=== PATIENT | female | born 1980 | race Caucasian/White ===

== ENCOUNTER 2021-01-07 08:53 | Emergency (ER) | payer OTHER, SELFPAY ==
[2021-01-07 08:59] VITALS: BP 147/99; PULSE 71; RESP 16; TEMP 36.1; O2SAT 99
[2021-01-07] MEDS: Ibuprofen 800 MG TAB (09:19)
--- NOTE | 2021-01-07 10:07 | DI.RAD_ITS ---
Exam(s) XR ANKLE RT COMPLETE EXAM: XR ANKLE RT COMPLETE CLINICAL HISTORY: trauma, lateral right ankle pain TECHNIQUE: COMPARISON: No exams were available for comparison FINDINGS: Three views were obtained. The ankle mortise is well maintained. There are nonspecific calcific and /or ossific radiodensities projected adjacent to the medial and posterior malleoli of the tibia. There is no evidence of acute fracture or dislocation. IMPRESSION: RADIATION DOSE DELIVERED: Total DLP
--- NOTE | 2021-01-07 11:18 | ED.GENADUL_ITS ---
Discharge Plan Disposition Patient Disposition: HOME Condition: Stable Discharge Details Clinical Impression: Ankle injury Primary Care Provider: Jus Joy ED Provider: Christine Barajas Home Meds and New Rx's Prescriptions: Continued lorazepam 1 mg tablet 0.5 mg PO DAILY PRNRF: 0 sertraline 50 mg tablet 25 mg PO DAILY RF: 0 Discharge Instructions Instructions: Ankle Sprain (ED) Additional Instructions: Please return immediately to the emergency department if you develop any new or worsening symptoms, if your condition does not improve as expected, or if you become otherwise concerned. It is extremely important that you call soon as possible to make an appointment to be seen in follow-up for this visit by your primary care doctor. Referrals: Jus Joy MD [Primary Care Provider] - Discharge Data Discharge Date/Time-TO BE ENTERED AT DEPARTURE: 01/07/21 11:28 Medical Decision Making Kerri Hart is a 40 y/o woman without reported h/o major medical problems who presented to the emergency department with ankle pain after inverting her ankle while carrying garbage this morning. On exam Pt is well and non-toxic appearing. There is TTP of the right ankle just inferior to the lateral mallelous, no other TTP of the ankle, foot, or right lower leg. Right foot is NVI. Concern for fracture vs sprain. Exam/hx at this time not c/w maisonneuve injury, DVT, non- mechanical etiology of injury, other significant injury of the extremities, head, spine, thorax, abdomen. Plan for xrays. xrays normal. Plan for ankle stabilizer, crutches, weight bearing as tolerated, outpt f/u. I had a lengthy discussion with Patient regarding return to emergency department precautions, home care, and importance of outpatient follow-up. Pt verbalizes understanding of the plan and is amenable. Patient discharged to home with clear plan for outpatient follow-up. All questions were answered. Disposition decision was made weighing the risks and benefits of hospitalization versus outpatient treatment, the risk for further decompensation, and the patient's wishes. Medical Records Medical records reviewed: Yes I reviewed the patient's medical records. Imaging Data Radiologic Study: Attestation: I personally reviewed and interpreted this imaging study as follows: Radiologist's impression: EXAM: XR ANKLE RT COMPLETE CLINICAL HISTORY: trauma, lateral right ankle pain TECHNIQUE: COMPARISON: No exams were available for comparison FINDINGS: Three views were obtained. The ankle mortise is well maintained. There are nonspecific calcific and/or ossific radiodensities projected adjacent to the medial and posterior malleoli of the tibia. There is no evidence of acute fracture or dislocation. HPI General Mode of arrival: ambulatory . Date/Time Provider Initiated Documentation: 01/07/21 09:25 . Limitations to Documentation: no limitations . Information obtained by: patient, RN notes reviewed and old records reviewed . HPI Narrative: Kerri Hart is a 40-year-old woman without reported history of major medical problems presenting to emergency department with ankle pain. Patient reports that this morning just prior to arrival she was helping unload garbage into a dumpster when she rolled her right ankle, inverting her foot. [place] a pop. Patient reports that she has had pain in the right lateral ankle with weightbearing since injury. Patient reports that she had no symptoms preceding injury. She denies any pain other than pain to the right lateral ankle. No fever, cough, shortness of breath, vomiting, diarrhea, numbness, weakness, rash. No skin wounds. Patient reports that she did not fall to the ground at time of injury. Related Data Home Medications Medication Instructions Recorded Confirmed lorazepam 1 mg tablet 0.5 mg PO DAILY PRN tab 08/27/20 01/07/21 sertraline 25 mg PO DAILY 01/07/21 01/07/21 Allergies Allergy/AdvReac Type Severity Reaction Status Date / Time latex AdvReac Itching Unverified 01/07/21 09:03 General Stated Complaint: Orthopedic TIGIST: 4 Review of Systems Narrative: Constitutional: denies fevers Eyes: denies eye pain ENT: denies ear pain, dental pain, sore throat Cardiovascular: denies chest pain Respiratory: denies SOB, cough GI: denies abdominal pain, vomiting, diarrhea : denies flank pain MSK: reports right ankle pain, denies back pain, neck pain, other arthralgias, myalgias Skin: denies rash, skin wound Neuro: denies headaches, numbness, weakness [facility] Medical History (Updated 01/07/21 @ 11:14 by Christine Barajas MD) History of herpes genitalis Palpitations (11/04/12) Surgical History section 2005,2008 Family History Mother Essential hypertension Depression Father Diabetes Bipolar disorder Depression Heart disease Hyperlipidemia Brother Depression Hyperlipidemia Asthma Grandfather Personal history of malignant neoplasm Skin and prostate Grandfather Essential hypertension Heart disease Hyperlipidemia Grandmother Essential hypertension Diabetes Grandmother No problems noted. Brother No problems noted. Social History Smoking/Tobacco Use Status: Never Smoking risk assessment performed?: Yes Alcohol Intake: current Alcohol Intake frequency: 3 or more drinks per day Alcohol type: wine Drug use: Socially Substance use type: marijuana Household members: children and other Details: 2 stepchildren Number of Children: 4 current occupation: [employer] Duration: 45-60 minutes/day Frequency: 1-2 times per week Do you feel safe at home: Yes Do you feel safe in your relationship?: Yes Exam Narrative Exam Narrative: Constitutional: well and [id number], pleasant, conversing normally HENT: head atraumatic/normocephalic/normal inspection, mucous membranes moist Eyes: conjunctiva normal, sclera normal, pupils 3mm b/l Neck: no stridor, normal ROM, trachea midline Resp: normal work of breathing, speaking in full sentences Cardio: normal rate, normal rhythm Skin: warm, dry, normal color, no rash Neuro: alert, not altered, grossly non-focal, normal tone Ext: focal edema of the right lateral ankle, no other skin changes of the right foot/ankle, TTP of the right ankle just inferior to the lateral mallelous, DP pulses intact, normal ROM right toes, painful ROM right ankle, normal ROM right knee, no posterior calf or proximal fibular TTP, no TTP of the heel, achilles, or foot Psych: normal mood, normal affect, normal behavior Course Vital Signs Vital signs: Vital Signs Temperature 36.1 C L 01/07/21 08:59 Pulse 71 01/07/21 08:59 Respiratory Rate 16 01/07/21 08:59 Blood Pressure 147/99 H 01/07/21 08:59 Pulse Oximetry 99 01/07/21 08:59 Temperature 36.1 C L 01/07/21 08:59 Temperature Source Skin 01/07/21 08:59 Pulse 71 01/07/21 08:59 Respiratory Rate 16 01/07/21 08:59 Respiratory Effort 01/07/21 09:06 Blood Pressure 147/99 H 01/07/21 08:59 Pulse Oximetry 99 01/07/21 08:59 Oxygen Delivery Method Room Air 01/07/21 08:59 Oxygen Flow Rate 0 01/07/21 08:59 Pain Level 2 01/07/21 09:08 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 01/07/21 08:59 PAWSS Have you Been Recently Intoxicated or Drunk Within the Last 30 days?: No Have you Ever Experienced Previous Episodes of Alcohol Withdrawal?: No Have you ever Experienced Withdrawal Seizures?: No Have you ever Experienced Delirium Tremens(DT)s?: No Have you ever undergone Alcohol Rehabilitation Treatment (i.e, inpt ot outpatient treatment programs)?: No Have you ever Experienced Blackouts?: No Have you ever Combined Alcohol with other Downers within the last 90 days?: No Have you ever Combined Alcohol with any other Substance of Abuse during the last 90 days?: No Positive Blood Alcohol level on Presentation? [PCS.BAL]: No Evidence of Increased Autonomic Activity (i.e. HR>120, tremor, sweating, agitation, nausea)?: No Result: 0
== END 2021-01-07 11:28 | disposition home or self-care (01) ==
PROVIDERS: Emergency Provider Student in an Organized Health Care Education/Training Program; PCP Family Medicine
DX: S99.811A Other specified injuries of right ankle, initial encounter (principal); X50.1XXA Overexertion from prolonged static or awkward postures, initial encounter
CPT/HCPCS: 29515; 99283; 73610

== ENCOUNTER 2021-12-09 20:58 | Outpatient (REF) | payer SELFPAY | END 2021-12-09 20:59 | disposition home or self-care (01) | LOC: LBN 20:58 | PROVIDERS: PCP Family Medicine; Visit Provider Nurse Practitioner Family | DX: N39.0 Urinary tract infection, site not specified (principal) | CPT/HCPCS: 87077; 87086; 87186 ==

== ENCOUNTER 2022-01-12 03:27 | Outpatient (CLI) | payer SELFPAY ==
[2022-01-12 10:51] LABS: Calculated LDL 162 mg/dL (<100); Cholesterol 234 mg/dL (<200); Glucose 73 mg/dL (74-106); HDL Cholesterol 53 mg/dL (40-60); TSH (W/Ref FT4) 1.97 uIU/mL (0.36-3.74); Triglyceride 95 mg/dL (<150)
[2022-01-12 11:02] LABS: C-Reactive Protein 0.51 mg/dL (0.0-0.3)
== END 2022-01-12 03:28 | disposition home or self-care (01) ==
PROVIDERS: PCP Family Medicine; Visit Provider Family Medicine
DX: E78.5 Hyperlipidemia, unspecified (principal); E03.9 Hypothyroidism, unspecified; R73.9 Hyperglycemia, unspecified; R41.89 Other symptoms and signs involving cognitive functions and awareness
CPT/HCPCS: 36415; 80061; 82947; 84443; 86140

== ENCOUNTER 2023-01-27 16:33 | Emergency (ER) | payer MEDICAID, SELFPAY ==
[2023-01-27] VITALS (9 sets, daily range): BP systolic 130–201; BP diastolic 81–121; PULSE 98–105; RESP 12–33; TEMP 36.8; O2SAT 99
--- NOTE | 2023-01-27 16:30 | RT.EKG_ITS ---
APPROVED REPORT Exam: Resting ECG Reason for Exam: high stress Patient Location: E HR:112 bpm ECG Measurements Heart Rate 112 AXIS ID 146 P 45 QRSd 86 QRS 29 QT 339 T -1 QTc 463 Conclusion Sinus tachycardia...rate> 99 Probable left atrial enlargement...P >50mS, <-0.10mV V1 Physician: no stemi, q3,T3 present. No significant ST elevation or depression. no prior for compariso n
--- NOTE | 2023-01-27 16:50 | ED.GENADUL_ITS ---
Discharge Plan Disposition Patient Disposition: Home Discharge Details Chief Complaint: Anxiety Clinical Impression: Left-sided chest pain, Muscle spasm, Anxiety Primary Care Provider: Jus Joy ED Provider: Zeus Raphael Home Meds and New Rx's Prescriptions: No Action multivitamin Tablet 1 tab PO DAILY bupropion HCl 150 mg tablet extended release 24 hr 150 mg PO QAM Qty: 30 2RF omeprazole 40 mg capsule,delayed release(DR/EC) 40 mg PO DAILY Qty: 90 3RF lorazepam 1 mg tablet 0.5 mg PO DAILY PRN (Reason: anxiety) Qty: 10 0RF famotidine [Zantac-360 (famotidine)] 10 mg tablet 10 mg PO DAILY Mirena 21 mcg/24 hours (8 yrs) 52 mg intrauterine device 1 device intrauterine ONCE Rx Instructions: as a single dose Discharge Instructions Instructions: Chest Pain (ED), Muscle Spasm (ED), Anxiety (ED) Additional Instructions: At this time your laboratory work-up has returned very reassuring. There is no evidence of heart attack, blood clot, or other significant abnormality. Your thyroid function is normal. Your electrolytes are normal. Your ultrasound shows evidence of a well-appearing heart, no pneumonia or pneumothorax for your lungs. At this time I am concerned that your symptoms are multifactorial. I suspect you have component of anxiety as well as potential viscerosomatic reflex from a gastric irritation. 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 Please continue to take your home medications as prescribed, take the cyclobenzaprine/muscle relaxant only as needed for breakthrough spasms. Continue to avoid spicy foods, tomato-based products, citrus products. If you notice any worsening of your symptoms, or any new symptoms such as vomiting, diarrhea, fever, chills, shortness of breath, chest pain, numbness, weakness, or fainting , please return immediately to the emergency department for reevaluation. Please follow up with your primary care provider as soon as possible for reassessment and reevaluation. As always, it was a pleasure participating in your medical care today. Referrals: Jus Joy MD [Primary Care Provider] - Medical Decision Making 42-year-old female with past medical history of mild anxiety, reflux, asthma, and a strong family history of cardiac disease at the age of 36, who presents today for evaluation of anxiety and chest discomfort. Patient states that 3 days ago she was started on Wellbutrin, she had been doing well with this. She has been having recurrence of her reflux over the last few weeks, and has been taking Prilosec for this. This morning at around 5 AM she saw her previous significant other, had a very challenging conversation with him, which led to notable amount of anxiety. In addition to this this is a 3-year anniversary 2 days ago of her father's from cardiac disease, in addition to this she had a [employer] sausage breakfast sandwich which immediately caused left-sided scapular pain and heartburn-like symptoms. The symptoms have continued throughout the day despite Prilosec and antacid use. With her continued anxiety components, and her other symptoms she was concerned and came to the ER for further assessment. She denies any vomiting or diarrhea. She denies any numbness or tingling. No personal previous history of cardiac disease. No other complaints at this time. She denies any exertional component. She denies any history of tobacco use. Exam demonstrates a anxious appearing female. Heart rate elevated, blood pressure elevated, she denies any pleuritic chest pain, history of blood clots, recent long travel or surgeries or procedures. Symptoms are concerning for reflux with an anxiety component however because of her strong family history of cardiac disease this is certainly on the differential as well. Will evaluate for unlikely ACS, will give GI cocktail, Carafate, small dose of Ativan, monitor closely and reassess. She has no hyperreflexia or leadpipe rigidity. No fever. Symptoms appear inconsistent with serotonin syndrome, or neuroleptic malignant syndrome. EKG EKG shows no ST elevation or depression. Q-wave in lead III, inverted T wave in lead III. No reciprocal elevations or depressions. No prior EKG for comparison. 8:43 PM Laboratory work-up has returned, no white count bandemia or left shift. Renal function stable. D-dimer normal. Troponin normal. Repeat 3-hour troponin normal. Thyroid function normal. GI cocktail did not change the patient's symptoms. Ativan and Valium notably improved the patient's anxiety, heart rate improved, blood pressure improved, and chest pain only minimally improved. Patient states that the chest pain is now very responsive to massage. Family member is massaging the area and she states that this resolves the pain during the massage. She still describes the pain as a muscular pain in the back by the scapula, and occasionally some mild pectoralis pain. Pain is mild though. Repeat EKG shows stability and no acute change. No evidence of STEMI. Bedside ultrasound was performed demonstrates good lung sliding, bedside cardiac echo shows normal ejection fraction, no pericardial effusion or tamponade. No subcutaneous crepitus. She does show 1 small gallstone in her gallbladder, no pain or tenderness there ago. No free air in the abdomen. Aortic outflow tract appears unremarkable. Patient otherwise feels stable to go home. We did discuss continued observation versus discharge home and she feels comfortable going home. We did talk about muscle relaxant for home use, at this time she would like just a few pills to help with the spasms in the meantime. Because of the patient's strong family history of cardiac etiology I do feel that continued follow-up is indicated. Patient is low risk for heart score at this time, I do not see an indication at this time for overnight observation. No stress test is available for the next 48 hours at this time. I do feel that continued close follow-up outpatient with her PCP as well as outpatient stress testing is indicated though. We will place a referral with cardiology for this, as well as recommend close PCP follow-up for further discussion of prompt outpatient nonemergent stress testing. Discussed the case with the family, the patient's cousin who is a cardiac nurse, and the patient herself. All parties agree with the plan. Chief diagnosis at this time is anxiety attack, viscerosomatic response to potential gastric irritation or stress causing muscle spasms, and at this time there is no clinical or historical evidence to suggest aortic dissection, PE, or ACS. Discussed red flags for which to return. I have extensively reviewed the treatment plan and discharge instructions with the patient and their family. I have addressed all patient concerns at this time. The patient and family was made aware of what symptoms to monitor for that would warrant a return to the emergency department. Discussed the plan with the patient and family, they demonstrate verbal understanding and agreement with our assessment and plan at this time. The documentation in this chart was dictated using [employer] dictation software. Please excuse any dictation errors. HPI General Date/Time Provider Initiated Documentation: 01/27/23 16:34 . HPI Narrative: 42-year-old female with past medical history of mild anxiety, reflux, asthma, and a strong family history of cardiac disease at the age of 38, who presents today for evaluation of anxiety and chest discomfort. Patient states that 3 days ago she was started on Wellbutrin, she had been doing well with this. She has been having recurrence of her reflux over the last few weeks, and has been taking Prilosec for this. This morning at around 5 AM she saw her previous significant other, had a very challenging conversation with him, which led to notable amount of anxiety. In addition to this this is a 3-year anniversary 2 days ago of her father's from cardiac disease, in addition to this she had a [employer] sausage breakfast sandwich which immediately caused left-sided scapular pain and heartburn-like symptoms. The symptoms have continued throughout the day despite Prilosec and antacid use. With her continued anxiety components, and her other symptoms she was concerned and came to the ER for further assessment. She denies any vomiting or diarrhea. She denies any numbness or tingling. No personal previous history of cardiac disease. No other complaints at this time. She denies any exertional component. She denies any history of tobacco use. Related Data Home Medications Medication Instructions Recorded Confirmed lorazepam 1 mg tablet 0.5 mg (1/2 x 1 mg) PO DAILY PRN 06/23/21 01/27/23 anxiety #10 tabs multivitamin 1 tab PO DAILY 06/05/22 01/27/23 bupropion HCl 150 mg 24 hr tablet, 150 mg PO QAM #30 tabs 01/24/23 01/27/23 extended release omeprazole 40 mg capsule,delayed 40 mg PO DAILY #90 caps 01/24/23 01/27/23 release famotidine 10 mg tablet 10 mg PO DAILY 01/27/23 01/27/23 (Zantac-360 (famotidine)) levonorgestrel 21 mcg/24 hours (8 1 device intrauterine ONCE 01/27/23 01/27/23 yrs) 52 mg intrauterine device (Mirena) Previous Rx's Medication Instructions Recorded lorazepam 1 mg tablet 0.5 mg (1/2 x 1 mg) PO DAILY PRN 06/23/21 anxiety #10 tabs bupropion HCl 150 mg 24 hr tablet, 150 mg PO QAM #30 tabs 01/24/23 extended release omeprazole 40 mg capsule,delayed 40 mg PO DAILY #90 caps 01/24/23 release Allergies Allergy/AdvReac Type Severity Reaction Status Date / Time latex AdvReac Itching Unverified 01/27/23 16:46 General Stated Complaint: Anxiety TIGIST: 3 Review of Systems All systems reviewed & are unremarkable except as noted in HPI and below PFSH All Active Problems (Updated 01/27/23 @ 20:38 by Zeus Raphael DO) Anxiety (Chronic) Muscle spasm (Acute) Left-sided chest pain (Acute) Anal skin tag (Acute) Bleeding hemorrhoids (Acute) Ankle injury (Acute) Adjustment disorder (Chronic) Visit for preventive health examination (Acute) Diarrhea (Acute) BMI 35.0-35.9,adult (Acute) Medical History History of herpes genitalis Palpitations (11/04/12) Surgical History section 2005,2008 Family History Mother Essential hypertension Depression Father , 62 Diabetes Bipolar disorder Depression Heart disease Hyperlipidemia Brother Depression Hyperlipidemia Asthma Grandfather Personal history of malignant neoplasm Skin and prostate Grandfather Essential hypertension Heart disease Hyperlipidemia Grandmother Essential hypertension Diabetes Son No problems noted. Daughter No problems noted. 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 Pets and animals: Yes Pets and animals: cat(s) and dog(s) Sexually active: Yes Do you think of yourself as: straight/heterosexual Current gender identity: female What is your relationship status?: How often do you talk on the phone with friends or family?: twice per week How often do you get together with friends or relatives?: once per week How often do you attend restoration or mormonism services?: 1-3 times per year Do you belong to any clubs or organized social groups?: no Panel score (0-1 are the most socially isolated patients): 1 Duration: 45-60 minutes/day Frequency: 1-2 times per week Sabra/Congregational: Adventism Special sabra needs: No Do you feel safe at home: Yes Do you feel safe in your relationship?: Yes Exam Narrative Exam Narrative: 1.Const: Well-nourished, Well-developed, appearing stated age 2.Eyes: PERRL, no conjunctival injection, and symmetrical lids. 3.ENT: Atraumatic external nose and ears. Moist MM. Neck: Symmetric, trachea midline, No thyromegaly. 4.CVS: +S1/S2, No murmurs or gallops. Peripheral pulses 2+ and equal in all extremities. Brisk capillary refill in all extremities. 5.RESP: Unlabored respiratory effort. Clear to auscultation bilaterally. No wheezes rales or rhonchi 6.GI: Soft, Nontender/Nondistended, No hepatosplenomegaly. No guarding or rebound. 7.MSK: Normocephalic/Atraumatic, Extremities w/o deformity or ttp No cyanosis or clubbing, Normal movement of all extremities 8.Skin: Warm, Dry. No rashes or lesions. 9.Neuro: agricultural researcher II-XII grossly intact. Sensation grossly intact, no focal neurologic deficits. 10.Psych: (AAO) x3. Appropriate mood and affect Course Vital Signs Vital signs: Vital Signs Temperature 36.8 C 01/27/23 16:36 Pulse 99 H 01/27/23 16:36 Respiratory Rate 20 01/27/23 16:36 Blood Pressure 201/121 H 01/27/23 16:36 Pulse Oximetry 99 01/27/23 16:36 Temperature 36.8 C 01/27/23 16:36 Temperature Source Oral 01/27/23 16:36 Pulse 99 H 01/27/23 16:36 Respiratory Rate 20 01/27/23 16:36 Respiratory Effort Normal 01/27/23 16:46 Blood Pressure 201/121 H 01/27/23 16:36 Blood Pressure Position Sitting 01/27/23 16:36 Pulse Oximetry 99 01/27/23 16:36 Oxygen Delivery Method Room Air 01/27/23 16:36 Oxygen Flow Rate 0 01/27/23 16:36 POCUS Exam (ED) Limited Cardiac Exam DATE OF EXAM: 01/27/23 TIME OF EXAM: 20:38 PROVIDER THAT PERFORMED THE STUDY: Zeus Raphael IS THIS A REPEAT EXAM DURING THIS ENCOUNTER: no REASON FOR EXAM: Chest pain VISUALIZED STRUCTURES: Left atrium, Left ventricle, Right atrium, Right ventricle, Aortic valve and Interventricular septum VIEW OBTAINED: Parasternal long-axis PERTINENT FINDINGS/IMPRESSION: No apparent abnormalities Exam complete Limited Thoracic Lung Exam DATE OF EXAM: 01/27/23 TIME OF EXAM: 20:40 PROVIDER THAT PERFORMED THE STUDY: Zeus Raphael IS THIS A REPEAT EXAM DURING THIS ENCOUNTER: No REASON FOR EXAM: Chest pain VISUALIZED STRUCTURES: right anterior, left anterior, right lateral, left lateral, right posterior and left posterior PERTINENT FINDINGS/IMPRESSION: No apparent abnormalities; lung sliding left side, lung sliding left side, no B-Lines/left side, no B-lines/left side and no pneumonia noted Exam complete
[2023-01-27] MEDS: Sucralfate 1 GM TAB PO (17:02)
[2023-01-27] MEDS: LORazepam 2 MG/ML VIAL 1 MG IVP (17:02)
[2023-01-27] MEDS: Normal Saline 500 ML IV (17:03)
[2023-01-27 17:12] LABS: Abs Immature Grans 0.02 10^3/uL (0.0-0.06); Absolute Basophil Count 0.03 10^3/uL (0.0-0.2); Absolute Eosinophil Count 0.05 10^3/uL (0.0-0.7); Absolute Lymphocyte Count 2.22 10^3/uL (1.2-3.4); Absolute Neutrophil Count 4.88 10^3/uL (1.2-6.7); Basophils % 0.4; Eosinophils % 0.6; HCT 40.7 % (36.0-46.0); HGB 13.8 g/dL (11.2-15.7); Immature Grans % 0.3; Lymphocytes % 28.5; MCH 29.6 pg (27.0-33.0); MCHC 33.9 % (32.0-36.0); MCV 87 fL (80-95); MPV 10.4 fL (8.0-11.0); Monocytes % 7.7; Neutrophils % 62.5; Platelet Count 196 10^3/uL (130-400); RBC 4.66 10^6/uL (3.93-5.22); RDW-SD 38.5 fL
[2023-01-27 17:36] LABS: ALT 23 U/L (14-59); AST 15 U/L (15-37); Albumin 3.8 g/dL (3.4-5.0); Alkaline Phosphatase 108 U/L (46-116); Anion Gap 9.5 mmol/L (3-11); BUN 10 mg/dL (7-18); Bilirubin, Total 0.3 mg/dL (0.2-1.0); CO2 27.5 mmol/L (21.0-32.0); CREATININE 1.1 mg/dL (0.55-1.02); Calcium 9.2 mg/dL (8.5-10.1); Chloride 103 mmol/L (98-107); Estimated GFR 65.14 (mL/min/1.73m2); Glucose 108 mg/dL (74-106); Potassium 3.1 mmol/L (3.5-5.1); Sodium 140 mmol/L (136-145); TSH (W/Ref FT4) 3.57 uIU/mL (0.36-3.74); Total Protein 7.8 g/dL (6.4-8.2)
[2023-01-27 17:38] LABS: Troponin I < 50 ng/L (<or=60)
[2023-01-27] MEDS: LORazepam 2 MG/ML VIAL 0.5 MG IVP (17:54)
--- NOTE | 2023-01-27 18:15 | RT.EKG_ITS ---
APPROVED REPORT Exam: Resting ECG Reason for Exam: chest pain Patient Location: E HR:98 bpm ECG Measurements Heart Rate 98 AXIS UT 144 P 44 QRSd 82 QRS 11 QT 358 T -1 QTc 458 Conclusion Sinus rhythm...normal P axis, V-rate 60- 99 Probable left atrial enlargement...P >50mS, <-0.10mV V1 Low voltage, precordial leads...precordial leads <1.0mV Physician: No stemi, Q wave and inverted t wave in III, stable and unchagned compared to prior EKG fr om today
[2023-01-27] MEDS: diazePAM 5 MG TAB PO (18:31)
[2023-01-27 19:10] LABS: D-Dimer 324 ng/mlFEU (<500)
[2023-01-27 19:56] LABS: Troponin I < 50 ng/L (<or=60)
[2023-01-27] MEDS: Cyclobenzaprine 10 MG TAB, 3 TABS/BTL PO (20:46)
--- NOTE | 2023-01-27 20:49 | NUR.NOTE ---
Referral faxed to [facility] for a f/u within a month for chest pain with a strong family history.Nursing Note:
== END 2023-01-27 20:48 | disposition home or self-care (01) ==
PROVIDERS: Emergency Provider Student in an Organized Health Care Education/Training Program; PCP Family Medicine
DX: F41.9 Anxiety disorder, unspecified (principal); R07.9 Chest pain, unspecified; M62.838 Other muscle spasm; Z82.49 Family history of ischemic heart disease and other diseases of the circulatory system; F10.90 Alcohol use, unspecified, uncomplicated
CPT/HCPCS: 36415; 76604; 80053; 93005; 93308; 96361; 96374; 96376; 99284; 83735; 84443; 84484; 85025; 85379; 93010; 99283; J2060

== ENCOUNTER 2023-03-21 03:10 | Outpatient (CLI) | payer MEDICAID, SELFPAY ==
[2023-03-21 13:56] LABS: ESR 5 mm/hr (0-20)
[2023-03-21 14:09] LABS: Bacteria Few HPF (Negative); C & S Indicated? No/Sq. Contamination; Casts Negative LPF (Negative); Crystals Negative HPF (Negative); Epithelial Cells Moderate HPF (Negative); Mucus Negative (Negative); RBC Negative HPF (0-2); WBC 0-2 HPF (0-5)
[2023-03-21 14:20] LABS: Sodium, Urine 64 mmol/L
[2023-03-21 14:33] LABS: C-Reactive Protein 0.41 mg/dL (0.0-0.3)
[2023-03-21 21:43] LABS: Rheumatoid Factor <8.6 IU/mL (<12.0)
[2023-03-22 12:53] LABS: ANA Interpretation Negative (Negative)
== END 2023-03-21 03:11 | disposition home or self-care (01) ==
LOC: LBO 03:10
PROVIDERS: PCP Family Medicine; Visit Provider Family Medicine
DX: R07.9 Chest pain, unspecified; E87.1 Hypo-osmolality and hyponatremia; R41.89 Other symptoms and signs involving cognitive functions and awareness; R30.0 Dysuria
CPT/HCPCS: 36415; 85652; 81015; 84300; 86038; 86140; 86431

== ENCOUNTER 2023-11-09 01:28 | Outpatient (CLI) | payer MEDICAID, SELFPAY ==
[2023-11-09 14:52] LABS: Abs Immature Grans 0.01 10^3/uL (0.0-0.06); Absolute Basophil Count 0.04 10^3/uL (0.0-0.2); Absolute Eosinophil Count 0.13 10^3/uL (0.0-0.7); Absolute Lymphocyte Count 2.32 10^3/uL (1.2-3.4); Absolute Monocyte Count 0.44 10^3/uL (0.1-0.8); Absolute Neutrophil Count 4.61 10^3/uL (1.2-6.7); Basophils % 0.5 %; Eosinophils % 1.7 %; HCT 42.8 % (36.0-46.0); HGB 14.2 g/dL (11.2-15.7); Immature Grans % 0.1 %; Lymphocytes % 30.7 %; MCH 29.4 pg (27.0-33.0); MCHC 33.2 % (32.0-36.0); MCV 89 fL (80-95); MPV 10.3 fL (8.0-11.0); Monocytes % 5.8 %; Neutrophils % 61.2 %; Platelet Count 232 10^3/uL (130-400); RBC 4.83 10^6/uL (3.93-5.22); RDW 12.2 % (11.7-14.6); RDW-SD 39.7 fL; WBC 7.55 10^3/uL (4.4-10.8)
[2023-11-09 15:05] LABS: Hemoglobin A1C 5.4 % (<5.7)
[2023-11-09 15:28] LABS: ALT 31 U/L (14-59); AST 15 U/L (15-37); Albumin 3.7 g/dL (3.4-5.0); Alkaline Phosphatase 126 U/L (46-116); Anion Gap 10.5 mmol/L (3-11); BUN 15 mg/dL (7-18); Bilirubin, Total 0.24 mg/dL (0.2-1.0); CO2 28.5 mmol/L (21.0-32.0); CREATININE 1.1 mg/dL (0.55-1.02); Chloride 102 mmol/L (98-107); Cholesterol 336 mg/dL (<200); Estimated GFR 64.74 (mL/min/1.73m2); Glucose 98 mg/dL (74-106); HDL Cholesterol 54 mg/dL (40-60); Potassium 4.1 mmol/L (3.5-5.1); Sodium 141 mmol/L (136-145); TSH 2.59 uIU/Ml (0.36-3.74); Total Protein 7.3 g/dL (6.4-8.2); Triglyceride 505 mg/dL (<150)
[2023-11-09 15:41] LABS: Vitamin D 25 Total 37.5 ng/mL (30-100)
[2023-11-09 16:03] LABS: LDL CHOLESTEROL 193 mg/dL (<100)
[2023-11-09 16:22] LABS: FREE T4 0.71 ng/dL (0.76-1.46)
[2023-11-09 23:51] LABS: T3, Total 118 ng/dL (97-169)
[2023-11-14 12:40] LABS: Thiamine (Vitamin B1), WB 125 nmol/L (70-180)
== END 2023-11-09 01:29 | disposition home or self-care (01) ==
LOC: LBO 01:28
PROVIDERS: PCP Family Medicine; Visit Provider Family Medicine
DX: E11.51 Type 2 diabetes mellitus with diabetic peripheral angiopathy without gangrene (principal); E78.5 Hyperlipidemia, unspecified
CPT/HCPCS: 36415; 80053; 80061; 82306; 83721; 83036; 84425; 84439; 84443; 84480; 85025

== ENCOUNTER 2024-04-25 00:48 | Outpatient (CLI) | payer MEDICAID, SELFPAY ==
[2024-04-25 13:37] LABS: ALT 25 U/L (14-59); AST 14 U/L (15-37); Alkaline Phosphatase 95 U/L (46-116); Anion Gap 6.2 mmol/L (3-11); BUN 14 mg/dL (7-18); Bilirubin, Total 0.31 mg/dL (0.2-1.0); CO2 29.8 mmol/L (21.0-32.0); CREATININE 1.1 mg/dL (0.55-1.02); Calcium 9.7 mg/dL (8.5-10.1); Calculated LDL 140 mg/dL (<100); Chloride 104 mmol/L (98-107); Cholesterol 224 mg/dL (<200); Estimated GFR 64.74 (mL/min/1.73m2); Glucose 86 mg/dL (74-106); HDL Cholesterol 56 mg/dL (>or=50); Potassium 4.1 mmol/L (3.5-5.1); Sodium 140 mmol/L (136-145); Total Protein 7.5 g/dL (6.4-8.2); Triglyceride 143 mg/dL (<150)
== END 2024-04-25 00:49 | disposition home or self-care (01) ==
PROVIDERS: PCP Family Medicine; Visit Provider Naturopath
DX: E78.00 Pure hypercholesterolemia, unspecified (principal); Z51.81 Encounter for therapeutic drug level monitoring
CPT/HCPCS: 36415; 80053; 80061

== ENCOUNTER 2024-08-21 22:05 | Outpatient (REF) | payer MEDICAID, SELFPAY | END 2024-08-21 22:06 | disposition home or self-care (01) | LOC: LBN 22:05 | PROVIDERS: PCP Family Medicine; Visit Provider Nurse Practitioner Family | DX: R35.0 Frequency of micturition (principal); B95.7 Other staphylococcus as the cause of diseases classified elsewhere | CPT/HCPCS: 87077; 87086; 87186 ==